=== PATIENT | female | born 1975 | race Caucasian/White ===

== ENCOUNTER 2017-12-02 08:25 | Emergency (ER) | payer OTHER ==
[2017-12-02 08:41] VITALS: O2SAT 100
[2017-12-02] MEDS ORDERED: Hydrocodone/Acetaminophen 5 mg /300 mg Tab PO STA (09:24)
[2017-12-02] MEDS ORDERED: Lidocaine 1% Inj (20ml) INFIL STA (09:24)
[2017-12-02] MEDS ORDERED: Lidocaine 1% Inj (20ml) ONE (09:35)
[2017-12-02] MEDS ORDERED: Hydrocodone/Acetaminophen 5 mg /300 mg Tab PO ONE (09:35)
--- NOTE | 2017-12-02 09:53 | C.PDOC ---
History Of Present Illness 42 yr old female presents to the ER for evaluation of pain and swelling to her right lower buttock/posterior thigh for the past 1 week. Patient denies history of abscess, fever, chills, leg pain, weakness or numbness. Time Seen by Provider: 12/02/17 09:06 Chief Complaint (Nursing): Abnormal Skin Integrity History Per: Patient History/Exam Limitations: no limitations Onset/Duration Of Symptoms: Days (1 week) Past Medical History Reviewed: Historical Data, Nursing Documentation, Vital Signs Vital Signs: Last Vital Signs Temp 98 F 12/02/17 10:04 Pulse 90 12/02/17 10:04 Resp 18 12/02/17 10:04 BP 140/89 12/02/17 10:04 Pulse Ox 100 12/02/17 11:13 - Medical History PMH: Arthritis, Hypothyroidism Family History: States: No Known Family Hx - Social History Hx Tobacco Use: No Hx Alcohol Use: No Hx Substance Use: No - Immunization History Hx Tetanus Toxoid Vaccination: No Hx Influenza Vaccination: No Hx Pneumococcal Vaccination: No Review Of Systems Except As Marked, All Systems Reviewed And Found Negative. Constitutional: Negative for: Fever, Chills Musculoskeletal: Negative for: Leg Pain Skin: Positive for: Other (+ pain and swelling to the right lower buttock/ posterior thigh) Neurological: Negative for: Weakness, Numbness Physical Exam - Physical Exam Appears: Non-toxic, No Acute Distress Skin: Warm, Dry, No Rash, Other (Right Lower Buttock - Approximately 4-5 cm fluctuant abscess, erythema and tender to palpation. No labial abscess.) Oral Mucosa: Moist Cardiovascular: Rhythm Regular, No Murmur Respiratory: Normal Breath Sounds, No Rales, No Rhonchi, No Stridor, No Wheezing Gastrointestinal/Abdominal: Normal Exam, Soft, No Tenderness, No Guarding, No Rebound Extremity: Normal ROM, No Calf Tenderness, No Swelling Neurological/Psych: Oriented x3, Normal Speech, Normal Motor, Normal Sensation ED Course And Treatment O2 Sat by Pulse Oximetry: 100 (RA) Pulse Ox Interpretation: Normal Progress Note: PLAN: Clindamycin PO, Vicodin PO, I&D, Wound Cultures & Re-Eval. Patient is instructed to return in 2 days for follow up. Given instructions to keep area clean and dry. - Incision & Drainage Of Abscess Anesthesia: Lidocaine 1% (4-5 mls, local infiltrate) Prep Used: Betadine Procedure: Incised W/Scalpel Blade#: (11), Drained Pus (20 mls of purulent discharge), Packed W/Gauze, Cultures Obtained And Sent To Lab Disposition Counseled Patient/Family Regarding: Studies Performed, Diagnosis, Need For Followup, Rx Given - Disposition Referrals: Shakeel Angel MD [Staff Provider] - Disposition: HOME/ ROUTINE Disposition Time: 10:00 Condition: STABLE Additional Instructions: RETURN TO ER IN TWO DAYS FOR WOUND CHECK AND PACKING REMOVAL USE MEDICATIONS DIRECTED Prescriptions: Clindamycin [Cleocin] 300 mg PO TID #21 cap Hydrocodone/Acetaminophen [Hydrocodone-Acetamin 5-325 mg] 1 each PO Q6 PRN #15 tablet PRN Reason: PAIN Naproxen 375 mg PO BID PRN #20 tablet PRN Reason: pain Instructions: Abscess (ED) Forms: [employer] (Niuean) Print Language: CROATIAN - Clinical Impression Clinical Impression: Abscess of buttock, right - Scribe Statement The provider has reviewed the documentation as recorded by the [facility]io Painter Provider Attestation: All medical record entries made by the Chio were at my direction and personally dictated by me. I have reviewed the chart and agree that the record accurately reflects my personal performance of the history, physical exam, medical decision making, and the department course for this patient. I have also personally directed, reviewed, and agree with the discharge instructions and disposition.
[2017-12-02 10:19] VITALS: BP 140/89; PULSE 90; RESP 18; TEMP 98
== END 2017-12-02 10:04 | disposition home or self-care (01) ==
LOC: C.ER 08:25
DX: L02.31 Cutaneous abscess of buttock (principal); E03.9 Hypothyroidism, unspecified